=== PATIENT | female | born 1980 | race Caucasian/White ===

== ENCOUNTER → 2019-05-25 | Outpatient (CLI) | payer SELFPAY ==
[~2019-05-25] MED LIST: Aspirin EC81 MG PO; HYDR1TAB94 PO; ONDA4ODT PO
[2019-05-31 14:07] LABS: HPV 16 Negative (Negative); HPV 18 Negative (Negative); HPV OTHER HR TYPES Negative (Negative)
== END | disposition home or self-care (01) ==
LOC: LAB SHORT 15:07 → LAB 15:07
PROVIDERS: Nurse Practitioner Women's Health
DX: Z12.4 Encounter for screening for malignant neoplasm of cervix (principal); Z91.89 Other specified personal risk factors, not elsewhere classified
CPT/HCPCS: 87624; G0123

== ENCOUNTER → 2023-04-27 | Outpatient (CLI) | payer OTHER ==
[2023-04-27 11:02] LABS: BASOPHILS ABSOLUTE AUTO 0.03 K/mm3 (0.00-0.23); BASOPHILS PERCENT AUTO 1 % (0-2); EOSINOPHILS ABSOLUTE AUTO 0.08 K/mm3 (0.00-0.68); EOSINOPHILS PERCENT AUTO 1 % (0-6); Hematocrit 40.2 % (33.0-51.0); Hemoglobin 14.1 g/dL (11.5-16.0); IMMATURE GRAN ABSOLUTE AUTO 0.02 K/mm3 (0.00-0.10); IMMATURE GRAN PERCENT AUTO 0 % (0-1); LYMPHOCYTES PERCENT AUTO 33 % (21-46); MONOCYTES ABSOLUTE AUTO 0.46 K/mm3 (0.16-1.47); MONOCYTES PERCENT AUTO 8 % (4-13); Mean Corpuscular HGB 34.8 pg (26.0-34.0); Mean Corpuscular HGB Conc 35.1 g/dL (31.5-36.5); Mean Corpuscular Volume 99 fL (80-100); Mean Platelet Volume 10.4 fL (9.1-12.4); NEUTROPHILS PERCENT AUTO 56 % (41-73); Platelet Count 324 K/mm3 (150-400); RDW Coefficient Variation 12.1 % (11.7-14.2); RDW Standard Deviation 44.4 fL (35.1-46.3); Red Blood Cell Count 4.05 M/mm3 (3.80-5.20); White Blood Cell Count 5.69 K/mm3 (4.00-11.30)
[2023-04-27 11:27] LABS: Albumin, Blood 4.2 g/dL (3.4-5.0); Albumin/Globulin Ratio 1.3 (0.8-1.8); Bilirubin, Total 0.9 mg/dL (0.1-1.0); Bun/Creatinine Ratio 10.2 (12.0-20.0); Calcium, Blood 9.1 mg/dL (8.5-10.1); Creatinine, Blood 0.68 mg/dL (0.40-1.00); Globulin, Blood 3.3 g/dL (2.2-4.0); Potassium, Blood 3.7 mmol/L (3.5-5.5); Thyroid Stimulating Hormone 1.7 uIU/mL (0.360-4.800); Total Protein, Blood 7.5 g/dL (6.4-8.2)
== END | disposition home or self-care (01) ==
LOC: LAB 10:27 → LAB SHORT 10:27
PROVIDERS: Physician Assistant
DX: I10 Essential (primary) hypertension (principal); R00.2 Palpitations; R53.83 Other fatigue
CPT/HCPCS: 80053; 84443; 85025

== ENCOUNTER 2024-10-26 06:01 | Day surgery (SDC) | payer OTHER ==
[2024-10-26] VITALS (14 sets, daily range): BP systolic 125–167; BP diastolic 72–102
[~2024-10-26] VITALS: Ht 167.6 cm; Wt 74.3 kg
[~2024-10-26 06:01] MED LIST changes: +AMPDEX10CR PO
[2024-10-26] MEDS ORDERED: Lactated Ringer's 1,000 ML IV SCH ×2 (06:25→11:20)
[2024-10-26] MEDS ORDERED: CeFAZolin Sodium 2,000 MG in NS 100 ML IV SCH ×2 (06:25→14:00)
[2024-10-26] MEDS ORDERED: Ketorolac Tromethamine 30mg Vial ONE (06:28)
[2024-10-26] MEDS ORDERED: Rocuronium Bromide 10 MG/ML 5ML Injection IV ONE (06:28)
[2024-10-26] MEDS ORDERED: Ondansetron HCl 2 MG / ML 2ML Vial ONE (06:28)
[2024-10-26] MEDS ORDERED: propofoL 20 ML IV ONE (06:28)
[2024-10-26] MEDS ORDERED: Sugammadex Sodium 200 MG/2ML SDV (100 MG/ML) ONE (06:28)
[2024-10-26] MEDS ORDERED: Dexamethasone Sod Phos 10 MG/ML 1ML VIAL ONE (06:28)
[2024-10-26] MEDS ORDERED: FentaNYL Citrate 50 MCG/ML 5 ML Injection ONE (06:29)
--- NOTE | 2024-10-26 06:58 | NUR ---
AMBULATORY INTO SDS. PT DENIES PAIN. PT REPORTS FEELING ANXIOUS.HISTORY AND ALLERGIES REVIEWED. LUNGS WITH SCATTERED RHONCHI THAT CLEAR WITH COUGH. PT DENIES SOB-SATS >90% ON RA. NPO STATUS CONFIRMED. PT MOTHER IS HER RIDE HOME TODAY. PT PURSE AND CELL PHONE GIVEN TO HER MOTHER
[2024-10-26] MEDS ORDERED: CeFAZolin Sodium 2,000 MG VIAL ONE (07:14)
[2024-10-26] MEDS ORDERED: Ondansetron HCl 2 MG / ML 2ML Vial IV ONE (07:15)
[2024-10-26] MEDS ORDERED: Bupivacaine 0.5% HCl 5 MG/ML 30MLVIAL ONE (07:24)
[2024-10-26] MEDS ORDERED: Amphet Asp/Amphet/D-Amphet 10 MG CapCR PO SCH (09:00)
[2024-10-26] MEDS ORDERED: HYDROmorphone HCl/Pf 1MG SYR ONE (10:02)
[2024-10-26] MEDS ORDERED: Naloxone HCl 0.4MG / ML 1ML Vial IV PRN (11:20)
[2024-10-26] MEDS ORDERED: Simethicone 80 MG Chew PO PRN (11:20)
[2024-10-26] MEDS ORDERED: Ondansetron 4 MG TAB PO PRN (11:25)
[2024-10-26] MEDS ORDERED: Ondansetron HCl 2 MG / ML 2ML Vial IV PRN (11:25)
[2024-10-26] MEDS ORDERED: HYDROmorphone HCl/Pf 1MG SYR IV PRN (11:25)
[2024-10-26] MEDS ORDERED: Promethazine HCl 12.5 MG Supp PR PRN (11:25)
[2024-10-26] MEDS ORDERED: Ketorolac Tromethamine 30mg Vial IV PRN (11:25)
[2024-10-26] MEDS ORDERED: FLU VACC TS2024-25(6MOS UP)/PF 45 MCG/0.5 ML SYRINGE IM PRN (11:25)
[2024-10-26] MEDS ORDERED: HYDROcodone 5-APAP 325 TAB PO PRN (11:25)
[2024-10-26] MEDS ORDERED: Promethazine HCl 25 MG Tab PO PRN (11:30)
--- NOTE | 2024-10-26 17:00 | NUR ---
SHIFT SUMMARY POD0 LAVH, A/OX4, VSS, TOLERATING PO, PAIN MANAGED PER EMAR, CALLS APPROPRIATELY, AMBULATES WELL, VOIDING INDEPENDENTLY, SCANT DRAINAGE NOTED ON LINO PADS. NO ACCUTE EVENTS THIS SHIFT, CALL LIGHT IN REACH.
[2024-10-26] MEDS ORDERED: Docusate Sodium 100 MG Cap PO SCH (21:00)
[2024-10-27 03:10] VITALS: BP 155/97
--- NOTE | 2024-10-27 04:25 | NUR ---
TURNSTILE ATTENDANT SUMMARY PT A/OX4. PT REPORTING PAIN OF 6-7/10. MED PER MAR. PT AMBULATING TO THE BATHROOM. PT DRINKING ADEQUATE FLUIDS WITH GOOD OUTPUT. TOLERATING INTAKE WITH NO N&V. SEQ COMPRESSION IN PLACE. CALL LIGHT ACCESSIBLE. PT ABLE TO MAKE NEEDS KNOWN. PT MOTHER AT BEDSIDE T/O THE NIGHT. WILL CONT TO MONITOR UNTIL REPORT GIVEN TO ONCOMING NURSE.
[2024-10-27 06:35] LABS: BASOPHILS ABSOLUTE AUTO 0.02 K/mm3 (0.00-0.23); BASOPHILS PERCENT AUTO 0 % (0-2); EOSINOPHILS ABSOLUTE AUTO 0.03 K/mm3 (0.00-0.68); EOSINOPHILS PERCENT AUTO 0 % (0-6); Hematocrit 33.8 % (33.0-51.0); Hemoglobin 11.5 g/dL (11.5-16.0); IMMATURE GRAN ABSOLUTE AUTO 0.04 K/mm3 (0.00-0.10); IMMATURE GRAN PERCENT AUTO 0 % (0-1); LYMPHOCYTES ABSOLUTE AUTO 2.26 K/mm3 (0.84-5.20); LYMPHOCYTES PERCENT AUTO 21 % (21-46); MONOCYTES ABSOLUTE AUTO 0.82 K/mm3 (0.16-1.47); MONOCYTES PERCENT AUTO 8 % (4-13); Mean Corpuscular HGB 34.2 pg (26.0-34.0); Mean Corpuscular Volume 101 fL (80-100); Mean Platelet Volume 10.2 fL (9.1-12.4); NEUTROPHILS ABSOLUTE AUTO 7.56 K/mm3 (1.96-9.15); NEUTROPHILS PERCENT AUTO 70 % (41-73); Platelet Count 338 K/mm3 (150-400); RDW Coefficient Variation 12.3 % (11.7-14.2); RDW Standard Deviation 45.7 fL (35.1-46.3); Red Blood Cell Count 3.36 M/mm3 (3.80-5.20); White Blood Cell Count 10.73 K/mm3 (4.00-11.30)
[2024-10-27 07:28] VITALS: BP 156/96
[2024-10-27] MEDS ORDERED: Enoxaparin 40 MG/0.4 ML SYR SC SCH (09:00)
[2024-10-27] MEDS ORDERED: DOCU100 PO (10:21)
[2024-10-27] MEDS ORDERED: ENOX40I SC (10:22)
[2024-10-27] MEDS ORDERED: HYDR1TAB94 PO (10:22)
[2024-10-27] MEDS ORDERED: SIME80CH PO (10:22)
[2024-10-27] MEDS ORDERED: PROM25 PO (10:22)
--- NOTE | 2024-10-27 11:03 | NUR ---
SHIFT SUMMARY POD1 LAVH, A/OX4, VSS, TOLERATING PO, PAIN MANAGED PER EMAR, AMBULATING WELL, VOIDING INDEPENDENTLY, SCANT DRAINAGE ON HER LINO PAD, IV ACCESS REMOVED DURING DC INSTRUCTIONS. DISCUSSED DC INSTRUCTIONS INCLUDING HOME CARE, MEDICATIONS, AND FOLLOW UP APPOINTMENTS WHICH SHE ALREADY HAS SCHEDULED. NO QUESTIONS AT THIS TIME, DAUGHTER PRESENT DURING DC INSTRUCTIONS. ESCORTED OUT VIA WC TO GO HOME.
== END 2024-10-27 10:44 | disposition home or self-care (01) ==
LOC: ORSCMMR 06:01 → ORD 07:30 → SURS 12:09 → ORSCMMR 10-27 10:44 → SURS 10-27 10:44
PROVIDERS: Obstetrics & Gynecology
PROC: 0UT9FZZ Resection of Uterus, Via Natural or Artificial Opening With Percutaneous Endoscopic Assistance (ICD-10-PCS; principal; 2024-10-26 07:30)
PROC: 0UT7FZZ Resection of Bilateral Fallopian Tubes, Via Natural or Artificial Opening With Percutaneous Endoscopic Assistance (ICD-10-PCS; principal; 2024-10-26 07:30)
PROC: 0U5F4ZZ Destruction of Cul-de-sac, Percutaneous Endoscopic Approach (ICD-10-PCS; principal; 2024-10-26 07:30)
DX: N92.1 Excessive and frequent menstruation with irregular cycle (principal); D25.0 Submucous leiomyoma of uterus; N94.6 Dysmenorrhea, unspecified; N80.30 Endometriosis of pelvic peritoneum, unspecified; N83.8 Other noninflammatory disorders of ovary, fallopian tube and broad ligament; Q50.5 Embryonic cyst of broad ligament; Z86.718 Personal history of other venous thrombosis and embolism; E03.9 Hypothyroidism, unspecified; D68.51 Activated protein C resistance; Z79.82 Long term (current) use of aspirin
CPT/HCPCS: 36415; 85025; 86850; 86900; 86901; 88305; 88307; A9270; J0690; J1100; J1171; J1650; J1885; J2405; J2704; J3010; J7120

== ENCOUNTER 2025-02-20 06:57 | Emergency (ER) | payer OTHER ==
[~2025-02-20] VITALS: Ht 167.6 cm; Wt 70.3 kg
[~2025-02-20 06:57] MED LIST changes: +DOCU100 PO; +ENOX40I SC; +PROM25 PO; +SIME80CH PO
[2025-02-20 07:33] VITALS: BP 149/102
[2025-02-20] MEDS ORDERED: Ketorolac Tromethamine 15mg Vial IV ONE (07:50)
== END 2025-02-20 12:16 | disposition home or self-care (01) ==
LOC: ER 06:57
DX: M54.50 Low back pain, unspecified (principal); W10.9XXA Fall (on) (from) unspecified stairs and steps, initial encounter; Z79.82 Long term (current) use of aspirin; Z79.899 Other long term (current) drug therapy; Z88.5 Allergy status to narcotic agent
CPT/HCPCS: 71101; 72131; 96374; 99284-25; J1885

== ENCOUNTER 2025-05-21 01:55 | Emergency (ER) | payer OTHER ==
[~2025-05-21] VITALS: Ht 157.5 cm; Wt 81.7 kg
[2025-05-21 03:07] LABS: BASOPHILS ABSOLUTE AUTO 0.04 K/mm3 (0.00-0.23); BASOPHILS PERCENT AUTO 1 % (0-2); EOSINOPHILS ABSOLUTE AUTO 0.16 K/mm3 (0.00-0.68); EOSINOPHILS PERCENT AUTO 2 % (0-6); Hematocrit 38.0 % (33.0-51.0); Hemoglobin 13.0 g/dL (11.5-16.0); IMMATURE GRAN ABSOLUTE AUTO 0.02 K/mm3 (0.00-0.10); IMMATURE GRAN PERCENT AUTO 0 % (0-1); LYMPHOCYTES ABSOLUTE AUTO 2.89 K/mm3 (0.84-5.20); LYMPHOCYTES PERCENT AUTO 43 % (21-46); MONOCYTES ABSOLUTE AUTO 0.37 K/mm3 (0.16-1.47); MONOCYTES PERCENT AUTO 6 % (4-13); Mean Corpuscular HGB Conc 34.2 g/dL (31.5-36.5); Mean Corpuscular Volume 101 fL (80-100); NEUTROPHILS ABSOLUTE AUTO 3.25 K/mm3 (1.96-9.15); NEUTROPHILS PERCENT AUTO 48 % (41-73); NRBC ABSOLUTE 0.00 K/mm3 (0.00-0.02); NRBC Auto 0.0 /100 WBC (0.0-0.2); Platelet Count 339 K/mm3 (150-400); RDW Coefficient Variation 13.2 % (11.7-14.2); RDW Standard Deviation 48.9 fL (35.1-46.3)
[2025-05-21 03:19] LABS: Ethanol (Alcohol), Blood, Med 205.0 mg/dL; Magnesium, Blood 1.9 mg/dL (1.6-2.4)
[2025-05-21 03:20] LABS: Alanine Aminotransfer (ALT/SGP 62.0 U/L (12-78); Albumin, Blood 3.7 g/dL (3.4-5.0); Albumin/Globulin Ratio 1.1 (0.8-1.8); Anion Gap 13.0 mmol/L (3-11); Aspartate Aminotrans (AST/SGOT 53.0 U/L (12-37); Bilirubin, Total 0.5 mg/dL (0.1-1.0); Blood Urea Nitrogen 6.0 mg/dL (8-24); CO2, Blood 22.0 mmol/L (21-32); Calcium, Blood 8.3 mg/dL (8.5-10.1); Chloride, Blood 100.0 mmol/L (98-108); Creatinine, Blood 0.4 mg/dL (0.40-1.00); Globulin, Blood 3.5 g/dL (2.2-4.0); Glucose, Blood 134.0 mg/dL (70-99); Potassium, Blood 3.2 mmol/L (3.5-5.5); Sodium, Blood 132.0 mmol/L (136-145); Total Protein, Blood 7.2 g/dL (6.4-8.2)
[2025-05-21 05:30] VITALS: BP 148/88
== END 2025-05-21 05:41 | disposition home or self-care (01) ==
LOC: ER 01:55
PROVIDERS: Student in an Organized Health Care Education/Training Program
DX: F10.90 Alcohol use, unspecified, uncomplicated (principal); Y90.7 Blood alcohol level of 200-239 mg/100 ml; E87.1 Hypo-osmolality and hyponatremia; D68.51 Activated protein C resistance; Z79.82 Long term (current) use of aspirin; Z88.5 Allergy status to narcotic agent; Z79.01 Long term (current) use of anticoagulants; Z79.899 Other long term (current) drug therapy
CPT/HCPCS: 80053; 80320; 83735; 85025; 93005; 93010; 99284-25